=== PATIENT | female | born 1965 | race Caucasian/White ===

== ENCOUNTER 2017-07-18 05:52 | Day surgery (SDC) | payer OTHER ==
[2017-07-10 09:23] VITALS: BMI 27.1
[2017-07-18 06:38] VITALS: O2SAT 100
[2017-07-18] MEDS ORDERED: Bupivacaine HCl 0.25% PF (10 ml) Inj ONE ×2 (07:07→09:20)
[2017-07-18] MEDS ORDERED: ceFAZolin 1 gm in NS 1 GM/100 ML BAG IVPB ONE (07:07)
[2017-07-18] MEDS ORDERED: Lidocaine/Epinephrine 1% 1:100000 10 ML IJ ONE ×2 (07:07→09:20)
[2017-07-18] MEDS ORDERED: Midazolam 2 MG/2 ML VIAL ONE (07:31)
[2017-07-18] MEDS ORDERED: Propofol 10 mg/ml Inj (20 ML) ONE (07:34)
[2017-07-18] MEDS ORDERED: Rocuronium 10 mg/ml (5 ml) ONE (07:34)
[2017-07-18] MEDS ORDERED: Neostigmine Methylsulfate 3mg/3ml Syringe IV ONE (08:12)
--- NOTE | 2017-07-18 09:17 | PCM.SURG1 ---
Surgeon's Initial Post Op Note - Surgeon's Notes Surgeon: Dr. Steele Wringer Machine Operator: Dr. Brice PGY-3 Type of Anesthesia: General Endo Anesthesia Administered By: Dr. Chaves Pre-Operative Diagnosis: Acute on Chronic Cholecystitis Operative Findings: See operative report Post-Operative Diagnosis: Same Operation Performed: Robotic Assisted Cholecystectomy with Indocyanin Green Injection Specimen/Specimens Removed: Gallbladder Estimated Blood Loss: EBL {In ML}: 2 Blood Products Given: N/A Drains Used: No Drains Post-Op Condition: Good Date of Surgery/Procedure: 07/18/17 Time of Surgery/Procedure: 09:17
[2017-07-18] MEDS ORDERED: HYDROmorphone 0.5 mg/0.5 ml ISec IVP PRN (09:19)
--- NOTE | 2017-07-18 12:28 | OP ---
PROCEDURE DATE: 07/18/2017 PREOPERATIVE DIAGNOSIS: Chronic cholecystitis and cholelithiasis. POSTOPERATIVE DIAGNOSIS: Chronic cholecystitis and cholelithiasis. PROCEDURE: Robotic cholecystectomy. SURGEON: Gael Steele MD FISHING TOOL OPERATOR: Dr. Olson and Dr. Tracy Brice, PGY-1 resident. TYPE OF ANESTHESIA: General endotracheal tube anesthesia. ESTIMATED BLOOD LOSS: Around 10 mL. DRAINS: None. PATHOLOGY: Gallbladder with gall stones. Gallstone was sent for the Pathology. COMPLICATIONS: None. INTRAOPERATIVE FINDINGS: The patient had changes of chronic cholecystitis and cholelithiasis. DESCRIPTION OF PROCEDURE: On intraoperative steps, this 51-year-old female who was diagnosed with chronic cholecystitis and cholelithiasis and the patient was consented for robotic cholecystectomy, possible open. She was brought to the OR, placed supine on the operating table. After induction of the anesthesia, the abdomen was prepped and draped in the usual sterile fashion. A supraumbilical transverse incision was made after incising skin and subcutaneous tissue and the fascia. The robotic camera port was placed and another 8 mm port was placed after creating pneumo and the robot was brought in. Camera arm as well as arm 1, arm 2 was docked. The patient was placed in the right side head-up position before docking the robot and the gallbladder was retracted cranially. Calot's triangle dissection was done. Cystic duct and cystic artery was identified and intraoperative Firefly was used and the duct and the artery was clipped at 3 places and cut in between 2 clips in the gallbladder and gallbladder was dissected free from the gallbladder fossa, taken in an EndoCatch bag, taken out through the mucal port site after undocking the robot and taking off all the port under vision. The umbilical port site was closed in 2 layers, fascia with a 0-Vicryl interrupted suture, subcu with a 2-0 Vicryl and skin with a 4-0 Monocryl at all the port sites and dry sterile dressing was applied. The patient tolerated the procedure well. Count of the instrument and gauze was correct. There was no apparent complication. Gael Steele MD [facility] # [id number]
[2017-07-18 15:00] VITALS: BP 113/75; PULSE 65; RESP 18; TEMP 97.2
== END 2017-07-18 14:40 | disposition home or self-care (01) ==
LOC: C.SDS 05:52
PROVIDERS: ATTEND Surgery Surgical Critical Care
DX: K80.10 Calculus of gallbladder with chronic cholecystitis without obstruction (principal); M41.9 Scoliosis, unspecified; M54.5 Low back pain; G89.29 Other chronic pain; Z98.890 Other specified postprocedural states
CPT/HCPCS: 47562; 88304; 88342; J0690; J1885; J2250; J2405; J2704; J2710; J3010; J7030